=== PATIENT | female | born 1985 | race Caucasian/White ===

== ENCOUNTER 2017-09-27 15:19 | Day surgery (SDC) | payer BC, SELFPAY ==
[2017-09-27 15:55] VITALS: BP 125/73; TEMP 98.7; BMI 35.6
--- NOTE | 2017-09-27 17:41 | ULT ---
OBSTETRIC SONOGRAM LIMITED: 09/27/17 HISTORY: Pelvic bleeding. Second trimester gestation. FINDINGS: Multiple transabdominal sonographic views of the gravid uterus show a single intrauterine gestation i n cephalic presentation. Cervix is closed and 4.2 cm. Amniotic fluid index 14.4. Grade I placenta ant erior and fundal. No evidence of previa or abruption. No gross intracranial abnormalities demonstrate d. Heart motion at 136 beats per minute. Measurements are as follows: Biparietal diameter 26 weeks, 1 day. Head circumference 26 weeks, 0 days. Abdominal circumference 26 weeks, 2 days. Femur length 26 weeks, 4 days. Estimated date of delivery based on today's sonogram is 26 weeks, 1 day. Estimated weight 926 g ifeanyi. Hadlock percentile equals 41%. IMPRESSION: Single viable intrauterine with estimated gestational age based on today's sonogram of 26 weeks, 1 da y. No significant abnormalities are demonstrated. POS: SHADY
--- NOTE | 2017-09-27 21:20 | SS ---
DATE OF EVALUATION: 09/27/2017 LABOR AND DELIVERY TRIAGE NOTE REGULAR PHYSICIAN: Yaya Bean MD EVALUATING PHYSICIAN: Jeromy Espinosa MD CHIEF COMPLAINT: Bleeding. HISTORY OF PRESENT ILLNESS: Ms. Jordan is a 32-year-old white G1, P0 with an estimated date of confin ement of 01/01/2018, who presents complaining of an episode of bleeding with small clots earlier toda y. She denies ruptured membranes or decreased movement. Her care has been with Dr. Damien cortes and has been uncomplicated. PAST MEDICAL HISTORY: Includes hypothyroidism, allergic asthma, and depression. CURRENT MEDICATIONS: Prozac, vitamin, and porcine thyroid replacement. ALLERGIES: PHENTERMINE, which she says gives her itching. PAST SURGICAL HISTORY: Unremarkable. SOCIAL HISTORY: She denies tobacco, alcohol, or drug use. REVIEW OF SYSTEMS: Negative for nausea, vomiting, fever, chills, or decreased movement. PHYSICAL EXAMINATION: VITAL SIGNS: Stable and she is afebrile. GENERAL: She is well-appearing. She is in no acute distress. ABDOMEN: Soft, nontender, and gravid. There is no guarding or rebound. Ultrasound done by greenhouse technician at the bedside shows a 2-pound 1-ounce in the vertex position wi th an anterior fundal placenta. No retroplacental clot is seen. Cervix is 3.2 cm in length. Specul um exam done by ca shows a small amount of dark blood in the vagina and the cervix is closed. heart rate tracing is stable. No decelerations are seen. No significant uterine contractions are seen. ASSESSMENT: 1. 26-2/7 week intrauterine . 2. No evidence of labor. 3. Second trimester bleeding. PLAN: At this time, I have discussed the case with Dr. Bean. He spoke with the patient in detail and his plan at this time is to send her home to close observation. The patient was given precaution s upon discharge.
== END 2017-09-27 18:05 ==
LOC: L&D/OP 15:19
PROVIDERS: ATTEND Obstetrics & Gynecology
DX: O46.92 Antepartum hemorrhage, unspecified, second trimester (principal); O99.282 Endocrine, nutritional and metabolic diseases complicating pregnancy, second trimester; O99.342 Other mental disorders complicating pregnancy, second trimester; O99.512 Diseases of the respiratory system complicating pregnancy, second trimester; E03.9 Hypothyroidism, unspecified; F32.9 Major depressive disorder, single episode, unspecified; J45.909 Unspecified asthma, uncomplicated; Z3A.26 26 weeks gestation of pregnancy
CPT/HCPCS: 76815; 99283

== ENCOUNTER 2018-01-04 17:37 | Inpatient (IN) | payer BC ==
[2018-01-04] MEDS ORDERED: Zolpidem Tartrate 5 MG TAB PO PRN (22:11)
[2018-01-04] MEDS ORDERED: Ondansetron PF 4 MG/2 ML Vial IVP PRN (22:11)
[2018-01-04] MEDS ORDERED: NS / Oxytocin 40 units/1000ml 1,000 ML IV PRN (22:11)
[2018-01-04] MEDS ORDERED: Butorphanol Tartrate 1 MG/ML VIAL SLOW IVP PRN (22:11)
[2018-01-04] MEDS ORDERED: Lidocaine 1% (PF) 30 ML VIAL SC PRN (22:11)
[2018-01-04] MEDS ORDERED: Acetaminophen 500 MG TAB PO PRN (22:11)
[2018-01-04] MEDS ORDERED: Promethazine HCl 25 MG/ML VIAL IM PRN (22:11)
[2018-01-04] MEDS ORDERED: NS w/ Oxytocin 10 units 500 ML IV SCH (22:15)
[2018-01-04 22:44] VITALS: BMI 40.0
[2018-01-04 23:37] LABS: Hemoglobin 12.7 g/dL (12.0-16.0); Mean Corpuscular HGB CONC 34.3 g/dL (32.0-36.0); Mean Corpuscular Hemoglobin 31.6 pg (27.0-31.0); Mean Corpuscular Volume 92.1 fL (78.0-98.0); Mean Platelet Volume 11.2 fL (7.4-10.4); Platelet Count 162 thou/uL (130-400); Red Blood Cell (RBC) Count 4.03 mill/uL (4.20-5.40); White Blood Cell (WBC) Count 12.6 thou/uL (4.8-10.8)
[2018-01-05 01:13] LABS: HBSAg Index 0.25 S/CO (0-0.99); Hep B Surf Ag Non-Reactive S/CO (NonReactive); Syphilis Antibody Nonreactive (Nonreactive); Syphilis Antibody Index 0.03 S/CO (<1.00 Non-Reactive)
[2018-01-05] MEDS: NS w/ Oxytocin 10 units 500 ML IV SCH ×2 (05:00→08:17)
[2018-01-05] MEDS: Misoprostol 100 MCG TAB VAG SCH ×5 (05:07→18:16)
[2018-01-05] MEDS ORDERED: Fentanyl 4 mcg/Bup 0.1% Cadd 100 ML ONE ×2 (08:58→16:31)
[2018-01-05] MEDS ORDERED: Promethazine HCl 25 MG/ML VIAL IM PRN ×3 (09:43→20:46)
[2018-01-05] MEDS ORDERED: Ondansetron PF 4 MG/2 ML Vial IVP PRN ×3 (09:43→20:46)
[2018-01-05] MEDS ORDERED: ePHEDrine/0.9% NaCl/PF SYRINGE 50 mg/10 ml SLOW IVP PRN (09:43)
[2018-01-05] MEDS ORDERED: Eucerin (Mineral Oil/Petrolatum,White) 30 gm Jar TOP PRN ×2 (09:43→20:46)
[2018-01-05] MEDS ORDERED: Lactated Ringer's 500 ML IV PRN (09:43)
[2018-01-05] MEDS ORDERED: diphenhydrAMINE 50 MG/ML VIAL IVP PRN ×2 (09:43→20:46)
[2018-01-05] MEDS ORDERED: Acetaminophen 325 MG TAB PO PRN (09:43)
[2018-01-05] MEDS ORDERED: Naloxone HCl 0.4 mg/ml Vial IVP PRN ×4 (09:43→20:46)
[2018-01-05] MEDS ORDERED: Communication Order-Pharmacy FS SCH ×2 (09:45→21:00)
[2018-01-05] MEDS: Fentanyl 4 mcg/Bupivacaine 0.1% Cassette 100 ML EPIDURAL SCH ×2 (10:29→16:35)
[2018-01-05] MEDS ORDERED: Bupivacaine/Epinephrine 0.5% 10 ML VIAL ONE ×2 (11:11→19:51)
[2018-01-05] MEDS ORDERED: Bupivacaine/Epinephrine 0.25% 30 ML VIAL ONE (11:11)
[2018-01-05] MEDS ORDERED: Lidocaine 2% MPF 10 ML AMP (For Epidural Use) ONE (11:11)
[2018-01-05] MEDS ORDERED: Ketorolac Tromethamine 30 MG/ML VIAL ONE ×2 (11:29→19:51)
[2018-01-05] MEDS ORDERED: PHENYLEPHRINE-NS 100 MCG/ML 10 ML SYRINGE ONE ×2 (11:29→19:51)
[2018-01-05] MEDS ORDERED: Dexamethasone 20 MG/5 ML VIAL ONE (11:29)
[2018-01-05] MEDS ORDERED: diphenhydrAMINE 50 MG/ML VIAL ONE ×2 (11:29→19:51)
[2018-01-05] MEDS ORDERED: Ondansetron PF 4 MG/2 ML Vial ONE ×2 (11:29→19:51)
[2018-01-05] MEDS ORDERED: CEFAZOLIN 2 GM/50 ML BAG ONE (19:33)
[2018-01-05] MEDS ORDERED: Lanolin Ointment 7 GM TUBE TOP PRN (19:48)
[2018-01-05] MEDS ORDERED: Misoprostol 200 MCG TAB PR PRN (19:48)
[2018-01-05] MEDS ORDERED: diphenhydrAMINE 25 MG CAP PO PRN (19:48)
[2018-01-05] MEDS ORDERED: Bisacodyl 10 MG SUPP PR PRN (19:48)
[2018-01-05] MEDS ORDERED: Methylergonovine 0.2 MG/ML VIAL IM PRN (19:48)
[2018-01-05] MEDS ORDERED: Morphine PF 1 MG/ML SYR ONE (19:50)
[2018-01-05] MEDS ORDERED: Lidocaine 2% PF Inj 2 ML VIAL ONE (19:51)
[2018-01-05] MEDS ORDERED: Dexamethasone 4 mg/ml Vial ONE (19:51)
[2018-01-05] MEDS ORDERED: Oxytocin 10 UNITS/ML VIAL ONE (19:52)
--- NOTE | 2018-01-05 19:59 | PDOC.LDPN ---
Labor & Delivery Progress Note - Subjective Subjective: comfortable - Objective Vital signs reviewed and normal: yes General: NAD Uterine fundus: non tender SVE: 6-7 Effacement: 90% Station: -1 AROM: clear fluid IUPC placed: yes FSE placed: yes Resuscitative measures: amniofusion, maternal oxygen, maternal position change Plan: resuscitative measures (Patient continues to have poor tolerence to any type of position change and cervical exam. Pitocin has been stopped and restarted multiple times, each time resulting in non reassuring heart tones. We have tried mutiple resuscitative measure - amnioinfusion, oxygen, fluid boluses, position changes, discontinuing pitocin, but fetus will not tolerate labor without distress. 5 minute deceleration resulted from my last cervical exam. Furthermore, despite modest changes in cervical dilitiaton, no change of station can be appreciated since approximately 100pm, consistent with an arrest of descent. Patient and huband councelled on options of versus continued trial of labor, and they wish to proceed with and have specifically asked that we abandon induction and trial of labor in preference of immidiate .)
[2018-01-05] MEDS ORDERED: NS / Oxytocin 40 units/1000ml 1,000 ML IV SCH (20:00)
[2018-01-05] MEDS ORDERED: Fentanyl 100 MCG/2 ML VIAL ONE (20:40)
[2018-01-05] MEDS ORDERED: Ketamine 50 MG/ML (10ML VIAL) ONE (20:40)
[2018-01-05] MEDS ORDERED: Promethazine HCl 25 MG SUPP PR PRN (20:46)
[2018-01-05] MEDS ORDERED: Ondansetron HCl/PF 4 MG/2 ML Vial IVP PRN (20:46)
[2018-01-05] MEDS ORDERED: L&D-Morphine 4 MG/ML VIAL SLOW IVP PRN (20:46)
[2018-01-05] MEDS ORDERED: Ketorolac Tromethamine 30 MG/ML VIAL IVP PRN (20:46)
[2018-01-05] MEDS ORDERED: HYDROmorphone 2 MG/ML VIAL SLOW IVP PRN (20:46)
[2018-01-05] MEDS ORDERED: Meperidine HCl/PF 25 MG/ML VIAL SLOW IVP PRN (20:46)
[2018-01-05] MEDS ORDERED: Naloxone HCl 0.4 mg/ml Vial IV PRN (20:46)
[2018-01-06] MEDS: Docusate Calcium (SURFAK) 240 MG CAP PO SCH ×3 (00:47→22:17)
[2018-01-06] MEDS: Misoprostol 100 MCG TAB VAG SCH (02:05)
[2018-01-06 07:00] LABS: Mean Corpuscular HGB CONC 33.5 g/dL (32.0-36.0); Mean Corpuscular Hemoglobin 31.1 pg (27.0-31.0); Mean Corpuscular Volume 92.8 fL (78.0-98.0); Mean Platelet Volume 11.2 fL (7.4-10.4); Platelet Count 141 thou/uL (130-400); RBC Distribution Width 11.9 % (11.5-14.5); Red Blood Cell (RBC) Count 3.87 mill/uL (4.20-5.40); White Blood Cell (WBC) Count 19.5 thou/uL (4.8-10.8)
[2018-01-06] MEDS ORDERED: Acetaminophen/Codeine 30-300mg Tablet PO PRN (09:00)
[2018-01-06] MEDS ORDERED: Varicella virus, LIVE 0.5 ML VIAL SC ONE (09:00)
[2018-01-06] MEDS ORDERED: Zolpidem Tartrate 5 MG TAB PO PRN (09:00)
[2018-01-06] MEDS ORDERED: Measles/Mumps/Rubella 10 MCG/0.5 ML VIAL SC ONE (09:00)
[2018-01-06] MEDS ORDERED: Adacel (T-DAP) 0.5 ML VIAL IM ONE (09:00)
[2018-01-06] MEDS: HYDROcodone/Acetaminophen 5/325 mg Tablet PO PRN ×3 (10:26→22:17)
[2018-01-06] MEDS: Prenatal Vitamin 1 TAB PO SCH (10:27)
[2018-01-06] MEDS: Ibuprofen 800 MG TAB PO SCH ×2 (14:11→22:15)
--- NOTE | 2018-01-06 18:11 | PDOC.PP ---
Post Progress Note Post Day #: 1 PO intake tolerated: yes Flatus: no Ambulation: yes Vital Signs (12 hours) Temp Pulse Resp BP BP Pulse Ox 01/06/18 17:38 97.4 F L 95 20 130/62 01/06/18 11:46 97.9 F 86 20 117/68 01/06/18 08:00 96 01/06/18 07:55 98.1 F 70 20 117/55 L 96 Weight Weight 255 lb 8.995 oz - Physical Examination General: NAD Cardiovascular: no m/r/g, RRR Respiratory: clear to auscultation bilaterally, non-labored breathing Abdominal: + bowel sounds, lochia, no distention, appropriately TTP Extremities: negative homans (B) Skin: CS incision dry & intact, no rash Neurological: no gross focal deficits Psychiatric: A&Ox3, normal affect (Patient appears to be doing very well tonight.) Result Diagrams: 01/06/18 05:48 Additional Labs: Post Labs Blood Type A POSITIVE 01/04/18 23:08 Hep Bs Antigen Non-Reactive S/CO (NonReactive) 01/04/18 23:08
--- NOTE | 2018-01-06 18:13 | PDOC.LDHP ---
Labor and Delivery H&P Chief complaint: scheduled induction Current gestational age (weeks): 40 Grav: 1 Para: 1 Abnormal US findings: No Current medications: pre- vitamins Previous surgical history: none Allergies/Adverse Reactions: Allergies Allergy/AdvReac Type Severity Reaction Status Date / Time phentermine Allergy Mild Verified 01/04/18 22:46 Social history: none - Physical Exam Vital signs reviewed and normal: yes General: NAD, resting Heart: RRR Lungs: nonlabored breathing Abdomen: gravid Extremeties: no edema FHT: category 1 - Vaginal Exam cm dilated: 5 Effacement: 75% Station: -1 - Assessment L&D Assessment: term patient in labor - Plan Plan: admit to L&D, labor augmentation if indicated
[2018-01-06] MEDS: Simethicone Chewable 80 MG TAB PO PRN (22:17)
[2018-01-07] MEDS: HYDROcodone/Acetaminophen 5/325 mg Tablet PO PRN ×4 (02:47→16:28)
[2018-01-07] MEDS: Ibuprofen 800 MG TAB PO SCH ×2 (05:50→14:02)
[2018-01-07] MEDS ORDERED: Ibuprofen 800 MG TAB PO SCH (06:00)
[2018-01-07] MEDS: Prenatal Vitamin 1 TAB PO SCH (08:26)
[2018-01-07] MEDS: Docusate Calcium (SURFAK) 240 MG CAP PO SCH (08:26)
[2018-01-07] MEDS: Simethicone Chewable 80 MG TAB PO PRN (08:26)
[2018-01-07] MEDS ORDERED: Escitalopram Oxalate 10 mg Tablet PO SCH (13:00)
[2018-01-07 17:21] VITALS: BP 135/74; TEMP 98.1
[2018-01-08] MEDS ORDERED: Escitalopram Oxalate 10 mg Tablet PO SCH (09:00)
== END 2018-01-07 17:50 | disposition home or self-care (01) | DRG 788 ==
LOC: L&D 21:45 → 3SE 01-05 23:58 → 3SW 01-06 08:16
PROVIDERS: ADMIT Obstetrics & Gynecology; ATTEND Obstetrics & Gynecology
PROC: 10D00Z1 Extraction of Products of Conception, Low, Open Approach (ICD-10-PCS; principal; 2018-01-05)
PROC: 3E0 Administration, Physiological Systems and Anatomical Regions, Introduction (ICD-10-PCS; 2018-01-05)
DX: O64.8XX0 Obstructed labor due to other malposition and malpresentation, not applicable or unspecified (principal); O76 Abnormality in fetal heart rate and rhythm complicating labor and delivery; O62.1 Secondary uterine inertia; Z3A.40 40 weeks gestation of pregnancy; Z37.0 Single live birth
CPT/HCPCS: 36415; 51702; 85027; 86780; 86850; 86900; 86901; 87340; 90471; 90732; G0009; J1100; J1200; J1885; J2001; J2274; J2405; J2550; J2590; J3010; J3490